=== PATIENT | female | born 2005 | race Caucasian/White ===

== ENCOUNTER 2024-04-23 12:01 | Emergency (ER) | payer BC, SELFPAY ==
[2024-04-23 12:32] VITALS: BP 109/72; PULSE 87; RESP 16; TEMP 36.6; O2SAT 100
--- NOTE | 2024-04-23 12:40 | ED.EYEPROB ---
HPI - Eye Problem General Chief complaint: Eye Problems Stated complaint: bilateral eye irritation Time Seen by Provider: 04/23/24 12:40 Source: patient, RN notes reviewed and old records reviewed Mode of arrival: ambulatory Limitations: no limitations History of Present Illness HPI Narrative: 19 year old female presents to [facility] with complaints of bilateral eye redness which started yesterday, Patient reports that her eyes were matted shut this morning. Patient reports no acute change in her vision and denies any sharp pain to her eyes. visual acuity 20/25 bilaterally without correction MD chief complaint: eye redness Onset (ago): day(s) (day 2) Onset description: gradual Duration: progressively worsening Eye Symptoms: redness and discharge Severity: mild Severity scale (1-10): 2 Treatments Prior to Arrival: none Related Data Home Medications Medication Instructions Recorded Confirmed sertraline 50 mg tablet 50 mg PO DAILY 04/23/24 04/23/24 Allergies Allergy/AdvReac Type Severity Reaction Status Date / Time amoxicillin Allergy Rash Verified 04/23/24 12:30 Penicillins Allergy Rash Verified 04/23/24 12:30 Review of Systems Review of Systems: CONSTITUTIONAL: Denies fever, chills, or sweats. EYES: Denies visual changes. Reports redness,, irritation, discharge bilateral eyes with left greater than right. ENT: Denies rhinorrhea, congestion, sore throat, or otalgia. CARDIOVASCULAR: Denies chest pain, palpitations, or edema. RESPIRATORY: Denies cough or dyspnea. SKIN: Denies rash or itching. NEUROLOGIC: Denies headache All systems reviewed & are unremarkable except as noted in HPI and below PMFSH Past Medical History Medical History (Updated 04/25/24 @ 08:54 by Shannon Giron NP) Anxiety Surgical History Surgical History (Updated 04/25/24 @ 08:48 by Shannon Giron NP) Status post wisdom tooth extraction Social History Social History (Updated 04/25/24 @ 08:48 by Shannon Giron NP) Smoking status: Never smoker Alcohol intake: never Substance use: never Living arrangements: with family Occupation/Education: student Gender identity (if verbalized by the patient): Female Comments At time of signature, agree with nursing past medical, surgical, social and family history. There is no relevant family history pertinent to the presenting complaint Exam Narrative: GENERAL: Well-appearing, well-nourished, and in no acute distress. HEAD: Normocephalic, atraumatic. EYES: PERRLA and EOMI. Upper and lower eyelids unremarkable. No periorbital cellulitis noted. Sclera and conjunctivae injected bilaterally with some mucoid drainage.no vision deficit or any sharp pain to eyes.visual acuity with correction bilateral eyes 20/25 ENT: Nares clear, no rhinorrhea or epistaxis. Mucous membranes moist. NECK: Supple.no lymphadenopathy CHEST: Clear to auscultation. No respiratory distress.SAO2 100% on room air HEART: Regular rate and rhythm. No murmur heard. Normal peripheral pulses. SKIN: Warm, dry, no rash. NEURO: No focal deficits. Alert and oriented x3. Course Course Emergency Course: Patient is aware of diagnosis, understands and agrees to treatment plan. Anticipatory guidance given. Patient agrees to follow-up as directed and is aware of reasons to seek care at the emergency department. Portions of this record may have been created with voice recognition software Level of Care: Express Care Visit Vital Signs Vital signs: Vital Signs Temperature 36.6 C 04/23/24 12:32 Pulse Rate 87 04/23/24 12:32 Respiratory Rate 16 04/23/24 12:32 Blood Pressure 109/72 04/23/24 12:32 Pulse Oximetry 100 04/23/24 12:32 Temperature 36.6 C 04/23/24 12:32 Pulse Rate 87 04/23/24 12:32 Respiratory Rate 16 04/23/24 12:32 Blood Pressure 109/72 04/23/24 12:32 Pulse Oximetry 100 04/23/24 12:32 Reviewed MDM - Eye Problem MDM Narrative Medical decision making narrative: Consideration of the following conditions may be warranted for the presenting problem, they are not final diagnoses: Bacterial conjunctivitis, allergic conjunctivitis, viral conjunctivitis, foreign body, blepharitis, chalazion, hordeolum, corneal abrasion.? Exam findings show no acute concerns or changes; patient is non-toxic appearing and is in no distress.? Patient is appropriate for outpatient treatment and follow-up. Differential Diagnosis Differential diagnosis: Likely conjunctivitis, subconjunctival hemorrhage and other (bilateral eye redness and mucoid drainage) Medical Records Attestation: I reviewed the patient's medical records. Critical Care Time Critical Care Time Critical Care Time: No Discharge Plan Discharge Clinical Impression: Conjunctivitis Patient Disposition: Home, Self-Care Condition: Stable Instructions: How to Use Eye Drops (ED), Conjunctivitis (ED) Additional Instructions: Cold compresses to the eyes for comfort May need warm compresses to remove debris in the morning When cleaning the eyes used a washcloth in one direction then change washcloths or use a cotton ball in one direction and then his cotton balls Eyedrops as directed--may be more soothing if left in the refrigerator Do not share medicine--do not touch the eye with the medicine Tylenol or ibuprofen for pain Avoid screen time--television, computer, tablet or phone. Also no reading or driving Follow-up with PCP or hydrotherapist as directed no improvement 48 hours If your symptoms persist, change or worsen significantly before you can contact your personal physician then please, without delay, go to the emergency department for further evaluation. Follow-up with PCP in 7-10 days or sooner if needed Prescriptions: New ofloxacin 0.3 % drops See Rx Instructions .ROUTE .COMPLEX Qty: 10 0RF Rx Instructions: put 1-2 drps into affected eye(s) every 2-4 h x 2 days, then 1-2 drps 4 times/day days 3-7 No Action sertraline 50 mg tablet 50 mg PO DAILY Follow-up/Referrals: Noni,Namita [Other] Stand Alone Forms: Work/School Release IP Time of Disposition: 12:55 Quality [place] Coma Scale Eyes: Open Verbal: Oriented and Alert Motor: Follows Commands Jessica Coma Total Score: 15
== END 2024-04-23 13:01 | disposition home or self-care (01) ==
PROVIDERS: Emergency Provider Registered Nurse
DX: H10.9 Unspecified conjunctivitis (principal); F41.9 Anxiety disorder, unspecified
CPT/HCPCS: 99203; G0463